=== PATIENT | male | born 1935 | race Caucasian/White ===

== ENCOUNTER 2017-09-16 07:26 | Inpatient (IN) | payer OTHER, MEDICARE ==
--- NOTE | 2017-09-16 08:08 | CPEKG ---
Heart Rate: 83 RR Interval: 723 QRSD Interval: 94 QT Interval: 380 QTC Interval: 447 QRS Holderness: 48 T Wave Holderness: 187 EKG Severity - ABNORMAL ECG - EKG Impression: ATRIAL FIBRILLATION, V-RATE 70-105 EKG Impression: NONSPECIFIC T ABNORMALITIES, DIFFUSE LEADS Electronically Signed By: Dhruv Castaneda 16-Sep-2017 14:55:20
[2017-09-16 08:10] LABS: PLATELET COUNT 166 10^3/uL (150-400)
[2017-09-16] MEDS ORDERED: NS 1,000 ML IV ONE (08:17)
--- NOTE | 2017-09-16 08:27 | EDPHY ---
H & P Stated Complaint: diarrhea lightheaded since this Time Seen by Provider: 09/16/17 07:34 - Personal History Current Tetanus/Diphtheria Vaccine: Unsure Current Tetanus Diphtheria and Acellular Pertussis (TDAP): Unsure - Medical/Surgical History Hx Asthma: No Hx Chronic Respiratory Disease: No Hx Diabetes: Yes Hx Cardiac Disease: Yes Hx Renal Disease: No Hx Cirrhosis: No Hx Alcoholism: No Hx HIV/AIDS: No Hx Splenectomy or Spleen Trauma: No Other PMH: afib, NIDDM - Social History Smoking Status: Never smoked Constitutional: Initial Vital Signs Temperature (C) 37.9 C 09/16/17 07:32 Heart Rate 90 09/16/17 07:32 Respiratory Rate 16 09/16/17 07:32 Blood Pressure 146/85 H 09/16/17 07:32 O2 Sat (%) 90 L 09/16/17 07:32 O2 Delivery Mode Nasal Cannula O2 (L/minute) 2 Allergies/Adverse Reactions: No Known Allergies Allergy (Unverified 09/16/17 07:30) Home Medications: Medication Instructions Recorded Atenolol [Tenormin 25 mg (*)] 25 mg PO DAILY 09/16/17 Cholecalciferol Vit D3 [Vitamin D3 1,000 units PO DAILY 09/16/17 (*)] Cyanocobalamin [Vitamin B12 (*)] 1,000 mcg PO DAILY 09/16/17 Levothyroxine [Synthroid 75 mcg 75 mcg PO DAILY06 09/16/17 (*)] Ramipril [Altace 2.5mg (*)] 2.5 mg PO DAILY 09/16/17 Rosuvastatin Calcium [Crestor 10mg 10 mg PO DAILY 09/16/17 (RX)] Timolol 0.5% [TIMOPTIC 0.5% (*)] 1 drops EACHEYE BID 09/16/17 Warfarin Sodium [Coumadin 2.5MG 2.5 mg PO WEFR@21 09/16/17 (*)] Warfarin Sodium [Coumadin 5MG (*)] 5 mg PO SUMOTUTHSA@21 09/16/17 metFORMIN HCL [Glucophage 500 mg 500 mg PO BIDMEAL 09/16/17 (*)] Medical Decision Making - Diagnostics Imaging Results: Imaging Impressions Brain MRI 09/16/17 08:57 Impression: 1. Moderate cerebellar and bilateral cerebral atrophy. 2. No acute infarct, acute hemorrhage, hydrocephalus, mass effect, or herniation. 3. Several nonspecific hyperintense T2/FLAIR signal abnormalities in the white matter of bilateral cerebral hemispheres. Differential diagnosis includes moderate microvascular ischemic gliosis, versus less likely post-infectious/post -inflammatory sequela. 4. Mild sinusitis. Findings and recommendations discussed with Emergency Department physician, Dhruv Castaneda M.D. at 11:09 a.m. on 09/16/2017. Final report concurs with initial preliminary interpretation. Imaging: Discussed imaging studies w/ wind turbine electrical engineer Radiologist, I viewed and interpreted images myself ED Course/Re-evaluation: CHIEF COMPLAINT: Diarrhea, dizziness HISTORY OF PRESENT ILLNESS: The patient is an anticoagulated 81 y/o male with atrial fibrillation, diabetes, and sleep apnea complaining of one episode of watery diarrhea and subsequent dizziness onset early this morning. He arrived here from [place] two nights ago. Yesterday he felt fatigued throughout the day and only ate a small meal in the morning; he did take his Metformin yesterday. He has not been able to drink many fluids, but denies nausea, vomiting, abdominal pain. His is quite sleepy during initial assessment and the majority of his history was obtained from . He seems to have difficulty keeping track of the conversation, but is oriented x4. Patient and family denies slurred speech, word finding difficulty, focal weakness or paresthesias. also reports he had a cough yesterday. REVIEW OF SYSTEMS: A 10 point review of systems was performed and is negative with the exception of the elements mentioned in the history of present illness. PHYSICAL EXAM: HR, BP, O2 Sat 90% on room air, RR. Temp noted as initially afebrile now 38.5C General Appearance: Somnolent, well hydrated, appropriate, and non-toxic appearing. Head: Atraumatic without scalp tenderness or obvious injury Eyes: Pupils equal, round, reactive to light and accommodation, EOMI, no trauma , no injection. Nose: Atraumatic, no rhinorrhea, clear. Throat: There is no erythema or exudates, no lesions, normal tonsils, mucus membranes moist. Neck: Supple, nontender, no lymphadenopathy. Respiratory: No retractions, no distress, no wheezes, and no accessory muscle use. Lungs are clear to auscultation bilaterally. Cardiovascular: Irregularly irregular rate and rhythm, no murmurs, rubs, or gallops. Good capillary refill all extremities. Gastrointestinal: Abdomen is soft, nontender, non-distended, no masses, no rebound, no guarding, no peritoneal signs. Musculoskeletal: Normal active ROM of all extremities, atraumatic. Neurological: Alert, appropriate, and interactive. The patient has non-focal cranial nerves, motor, sensory, and cerebellar exam. Face symmetric. Normal straight leg raise. Slightly more coordinated on left oaxf-re-tbic test than right. Skin: No rashes, good turgor, no nodules on palpation. 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 and son at bedside. DIAGNOSTICS/PROCEDURES/CRITICAL CARE TIME: The 12 lead EKG was interpreted by myself. Atrial fibrillation with controlled ventricular rate. See hard copy and/or "tracemaster" electronic copy for interpretation. Brain MRI: no acute findings per Dr. Meza. DIFFERENTIAL DIAGNOSIS: The differential diagnosis for the patient's diarrhea included but was not limited to gastroenteritis, gastritis, appendicitis, and medication side effect. MEDICAL DECISION MAKING: This is a 81 y/o male with atrial fibrillation and diabetes who presents for evaluation after one episode of diarrhea with several hours of subsequent dizziness and generalized weakness. I cannot identify obvious focal neuro deficit apart from slight difference in coordination during [id number] test. He was initially quite somnolent, but is already more alert after some IV fluids and 2lpm O2 via nasal cannula. Lungs are clear and abdomen is benign. While it seems most likely he is dehydrated and possibly picked up an infection during travel, due to his atrial fibrillation history and sub-therapeutic INR at 1.58 today, I've recommended a brain MRI to rule out cerebellar stroke or other intracranial abnormality, which he and his family agree to. Will continue IV fluids as well. EKG shows atrial fibrillation with controlled rate. Patient is now febrile at 38.5C. UA ordered. Brain MRI negative for acute findings. Patient was unable to stand and walk even with assistance. I've recommended admission, which they agree to. Spoke with hospitalist service. Dr. Abbott accepts admission. - Data Points Laboratory Results: Laboratory Results 09/16/17 07:58 09/16/17 07:58 09/16/17 09/16/17 09/16/17 11:32 07:58 07:58 WBC 7.39 10^3/uL 10^3/uL (3.80-9.50) RBC 4.53 10^6/uL 10^6/uL (4.40-6.38) Hgb 14.5 g/dL g/dL (13.7-17.5) Hct 42.0 % % (40.0-51.0) MCV 92.7 fL fL (81.5-99.8) MCH 32.0 pg pg (27.9-34.1) MCHC 34.5 g/dL g/dL (32.4-36.7) RDW 13.2 % % (11.5-15.2) Plt Count 166 10^3/uL 10^3/uL (150-400) MPV 11.0 fL fL (8.7-11.7) Neut % (Auto) 87.8 % H % (39.3-74.2) Lymph % (Auto) 4.2 % L % (15.0-45.0) [place] % (Auto) 6.1 % % (4.5-13.0) Eos % (Auto) 1.1 % % (0.6-7.6) Baso % (Auto) 0.4 % % (0.3-1.7) Nucleat RBC Rel Count 0.0 % % (0.0-0.2) Absolute Neuts (auto) 6.49 10^3/uL 10^3/uL (1.70-6.50) Absolute Lymphs (auto) 0.31 10^3/uL L 10^3/uL (1.00-3.00) Absolute Monos (auto) 0.45 10^3/uL 10^3/uL (0.30-0.80) Absolute Eos (auto) 0.08 10^3/uL 10^3/uL (0.03-0.40) Absolute Basos (auto) 0.03 10^3/uL 10^3/uL (0.02-0.10) Absolute Nucleated RBC 0.00 10^3/uL 10^3/uL (0-0.01) Immature Gran % 0.4 % % (0.0-1.1) Immature Gran # 0.03 10^3/uL 10^3/uL (0.00-0.10) PT INR Sodium 136 mEq/L mEq/L (135-145) Potassium 3.9 mEq/L mEq/L (3.5-5.2) Chloride 99 mEq/L mEq/L (97-110) Carbon Dioxide 20 mEq/l L mEq/l (22-31) Anion Gap 17 mEq/L H mEq/L (8-16) BUN 13 mg/dL mg/dL (7-23) Creatinine 0.7 mg/dL mg/dL (0.7-1.3) Estimated GFR > 60 Glucose 200 mg/dL H mg/dL (70-100) POC Glucose Calcium 9.1 mg/dL mg/dL (8.5-10.4) Nasal Influenza A PCR FLU A DETECTED H (NEGATIVE) Nasal Influenza B PCR NEGATIVE FOR FLU B (NEGATIVE) 09/16/17 09/16/17 07:50 07:47 WBC RBC Hgb Hct MCV MCH MCHC RDW Plt Count MPV Neut % (Auto) Lymph % (Auto) [place] % (Auto) Eos % (Auto) Baso % (Auto) Nucleat RBC Rel Count Absolute Neuts (auto) Absolute Lymphs (auto) Absolute Monos (auto) Absolute Eos (auto) Absolute Basos (auto) Absolute Nucleated RBC Immature Gran % Immature Gran # PT 19.0 SEC H SEC (12.0-15.0) INR 1.58 H (0.83-1.16) Sodium Potassium Chloride Carbon Dioxide Anion Gap BUN Creatinine Estimated GFR Glucose POC Glucose 189 mg/dL H mg/dL (70-100) Calcium Nasal Influenza A PCR Nasal Influenza B PCR Medications Given: Discontinued Medications Sodium Chloride (Ns) 1,000 mls @ 0 mls/hr IV ONCE ONE PRN Reason: Wide Open Stop: 09/16/17 08:18 Last Admin: 09/16/17 08:22 Dose: 1,000 mls Point of Care Test Results: 09/16/17 07:47 POC Glucose 189 H Departure - Departure Disposition: [facility] In[facility] Acute Clinical Impression: Weakness Diarrhea Qualifiers: Diarrhea type: unspecified type Qualified Code(s): R19.7 - Diarrhea, unspecified Fever Qualifiers: Fever type: unspecified Qualified Code(s): R50.9 - Fever, unspecified Condition: Fair Report Scribed for: Dhruv Castaneda Report Scribed by: Ember Oneill Date of Report: 09/16/17 Time of Report: 08:27
[2017-09-16 08:31] LABS: INR 1.58 (0.83-1.16)
--- NOTE | 2017-09-16 12:02 | ASMTLACE ---
HENRIQUEE Acuity / Level of Answers: Yes Care: Did the patient have an inpatient admission? Comorbidities - select Answers: Diabetes (uncontrolled or all that apply controlled) # of Emergency department Answers: 1-2 visits in the last 6 months Score: 5 Date Signed: 09/16/2017 12:02 PM Electronically Signed By:Marianna Lake RN
[2017-09-16] MEDS ORDERED: ONDANSETRON 4 MG/2 ML VIAL IVP PRN (13:34)
[2017-09-16] MEDS ORDERED: ACETAMINOPHEN 325 MG TAB PO PRN (13:34)
[2017-09-16] MEDS ORDERED: ALBUTEROL 3 ML DEYVIAL IH PRN (13:34)
[2017-09-16] MEDS ORDERED: ONDANSETRON DISINTEGRATING 4 MG TAB PO PRN (13:34)
[2017-09-16] MEDS ORDERED: D50W 25 GM/50 ML SYR IVP PRN (13:36)
[2017-09-16] MEDS ORDERED: IOPAMIDOL (ISOVUE 370) 100 ML BTL IV ONE (14:02)
[2017-09-16] MEDS ORDERED: ALTEPLASE 1 MG/ML SYR IV ONE (14:52)
[2017-09-16] MEDS ORDERED: NS 50 ML IV ONE (14:52)
[2017-09-16] MEDS ORDERED: ALTEPLASE 100 MG/100 ML VIAL IV ONE (14:52)
[2017-09-16] MEDS ORDERED: LABETALOL HCL 5 MG/ML 20 ML MDV IVP PRN (14:53)
--- NOTE | 2017-09-16 15:57 | GHP ---
[f rep st] HISTORY AND PHYSICAL DATE OF ADMISSION: 09/16/2017 CHIEF COMPLAINT: Fatigue, diarrhea and lightheadedness. HISTORY OF PRESENT ILLNESS: Mr. Elliott is a 81-year-old male with history of diabetes, hypertension, hyperlipidemia, and atrial fibrillation on chronic anticoagulation who presents to the emergency department with dizziness, diarrhea, and fatigue. He is visiting from [place] and has been in his usual state of health until the day of presentation when he developed one episode of diarrhea and lightheadedness. There was reportedly a very small amount of bright red blood, though this did not persist and he did not have frankly bloody stools. No nausea or vomiting. He was febrile on arrival to 38.5. There are no known sick contacts. In the ED, he was reportedly a bit ataxic and an MRI of the brain without contrast was negative for acute hemorrhage or acute ischemia. An influenza A test was positive and he was admitted to the hospital for further management. Upon arrival to the floor, I evaluated him and found him to be aphasic. His was at the bedside and reported that this was a new symptom since he was in the ED. I confirmed with the ED staff that he was talking normally. I also found a right pronator drift. A stroke alert was called. Stat CT of his head was negative for acute hemorrhage. CTA was negative for thrombus. [facility] was readily available and evaluated the patient and found his symptoms to be consistent with an acute ischemic left cerebral hemispheric stroke. He takes Coumadin for atrial fibrillation though his INR is subtherapeutic at 1.58. He has had no recent bleeding other than that small amount of reported blood seen in his stool on once occasion. He denies recent head trauma. It was determined he was last seen normal at 12:45 p.m. I discussed the case with [facility], tPA will be initiated and the patient is admitted to the intensive care unit. PAST MEDICAL HISTORY: 1. Oqq-tjowcmo-mnkcgwzuo diabetes. 2. Hypertension. 3. Hyperlipidemia. 4. Atrial fibrillation. 5. Chronic anticoagulation with a subtherapeutic INR. 6. Sleep apnea, has refused CPAP. PAST MEDICATIONS: Please see [facility] for complete outpatient medication list. ALLERGIES: He has known drug allergies. PAST SURGICAL HISTORY: Meningioma resected on his spine. FAMILY HISTORY: Reviewed and noncontributory. SOCIAL HISTORY: The patient is visiting from [place]. His and son are at the bedside. He denies tobacco or significant alcohol use. REVIEW OF SYSTEMS: A 10-point review of systems was performed and is negative except as per HPI. OBJECTIVE: VITAL SIGNS: Blood pressure in the emergency department is 123/80. Upon arrival to the floor, his blood pressure was 180/81, current temperature is 37.3, although he was 38.5 in the ED, heart rate 89, respiratory rate 19. He is 94% on room air. GENERAL: The patient is awake, alert, and oriented to person and place ,in no acute distress. HEENT: Head is atraumatic, normocephalic. Pupils are equal, round, and reactive to light. Extraocular muscles are intact. Oropharynx is clear. Mucous membranes are moist. NECK: Supple. There is no JVD. HEART: Regular rate and rhythm without murmur. LUNGS : Lungs reveal diffuse mild expiratory wheezes. ABDOMEN: Soft, nondistended, nontender, normoactive bowel sounds. EXTREMITIES: Without cyanosis, clubbing, or edema. NEUROLOGIC: He has no facial asymmetry. He has a hayx-ch-ljpsoups aphasia, right pronator drift and right leg weakness are noted. There is no dense gaze deviation, though he does seem to have a left-sided gaze preference. LABORATORY DATA: CBC reveals a normal white cell count, normal hemoglobin, normal platelets of 166. INR is 1.58. Basic metabolic panel shows normal electrolytes though his CO2 is 20, anion gap 17, glucose is 200. Influenza A positive. Brain MRI without contrast performed in the emergency department was negative for acute infarct, hemorrhage or mass. Moderate cerebellar bilateral cerebral atrophy are noted as well as several nonspecific signal abnormalities in the white matter of bilateral cerebral hemispheres in addition to mild sinusitis. CT head without contrast 5 hours later is negative for acute hemorrhage. CTA head and neck is negative for large vessel occlusive disease. Some plaque is noted. The final radiology report is pending though I confirmed no thrombus with the radiologist. ASSESSMENT AND PLAN: Mr. Elliott is a 81-year-old male with history of diabetes , hypertension, hyperlipidemia, and atrial fibrillation with a subtherapeutic INR who presents to the emergency department with weakness, dizziness, and a positive influenza test. Further evaluation upon arrival to the medical floor is consistent with acute stroke. He was evaluated by [facility] and admitted to the intensive care unit on tPA. 1. Acute ischemic stroke. His exam is consistent with a left hemispheric stroke with aphasia and right sided weakness. NIH stroke scale is 8. He was last seen normal at 12:45 p.m. and is a candidate for tPA with an INR less than 1.7 on Coumadin. I reviewed the case with Dr. Salazar Patricio, [facility], who examined the patient and recommends administration of tPA. The patient is admitted to the intensive care unit on tPA protocol with frequent neurochecks. Neurology consult is requested. Will obtain echocardiogram and repeat a head CT in 24 hours. Defer repeating MRI and timing to Neurology. Obviously will hold his Coumadin for now. Blood pressure control with p.r.n. IV labetalol to maintain a SBP less than 180. Speech evaluation is requested. 2. Atrial fibrillation. He is currently rate controlled on atenolol. Will resume this in the morning. As above, Coumadin is held for now as he is receiving tPA. His subtherapeutic INR and poorly controlled hypertension likely increased his stroke risk. 3. Hypertension. Permissive hypertension for now with PRN Labetalol for SBP < 180. Resume BB in am. 4. Type 2 diabetes. The patient uses metformin in the outpatient setting. He is not on insulin. We will hold his metformin given his contrast load. Sliding scale lispro for glycemic control. He will be continued on his NITHYA inhibitor and statin. 5. Hyperlipidemia. Continue statin. 6. Influenza A. I will start him on Tamiflu and check a chest x-ray given his cough and wheezing on exam. Will provide p.r.n. albuterol nebulizers. I am going to defer steroids for now. We will consider initiating these over the next 24 hours if his respiratory symptoms worsen. 7. Deep venous thrombosis prophylaxis. The patient is receiving tPA. We will place sequential compression devices. 8. Code status: Patient is full code. 9. Disposition. Patient is admitted to inpatient status. I anticipate he will require greater than 48 hours hospitalization for ongoing management of his acute ischemic stroke, influenza A and multiple medical problems. 75 minutes critical care time on admission. 30 more minutes spent at bedside later in afternoon answering family questions. /[id number]/MODL MTDD
[2017-09-16] MEDS: NS W/ 20 KCl/L 1,000 ML IV SCH (16:49)
[2017-09-16] MEDS: FAMOTIDINE 20 MG/NACL 50 ML IV SCH (16:55)
[2017-09-16] MEDS: METOPROLOL TARTRATE 5 MG/5 ML INJ IVP ONE ×2 (16:59→17:25)
--- NOTE | 2017-09-16 17:18 | PDMN ---
Medical Necessity Medical necessity: C/M review: est. > 2 MN LOS for eval and TX of acute - ischemic left cerebral hemispheric stroke, influenza A requiring emergent IV tPA , planned Neurology consult, Rehab eval consult, echocardiogram, ongoing IV fluids, IV Pepcid, oral Tamiflu, cardiac monitoring, pulse oximetry, supplemental O2, acute inpt PT/OT/ST in ICU, comorbid atrial fibrillation, subtheraputic INR, poorly controlled hypertension, type 2 diabetes, hyperlipidemia per H/P.
[2017-09-16] MEDS: LEVALBUTEROL 1.25 MG/3 ML DEYVIAL IH SCH ×2 (17:27→23:52)
[2017-09-16] MEDS: INSULIN LISPRO 100 UNIT/ML SC SCH (19:00)
[2017-09-16] MEDS: LEVOTHYROXINE 75 MCG TAB PO SCH (19:48)
[2017-09-16] MEDS: ROSUVASTATIN CALCIUM 10 MG TAB PO SCH (19:48)
[2017-09-16] MEDS: TIMOLOL 0.5% 15 ML OPHT.BTL EACHEYE SCH ×2 (19:49→23:03)
--- NOTE | 2017-09-16 23:22 | GCON ---
[f rep st] CONSULTATION PULMONARY/CRITICAL CARE CONSULTATION DATE OF CONSULTATION: 09/16/2017 REASON FOR CONSULTATION: Intensive care unit evaluation and management of acute neurologic symptoms and influenza A infection. HISTORY: The patient is a pleasant 81-year-old from [place]. He flew out to [place] to visit a new gr and baby. Yesterday, he developed diarrhea. This persisted and he presented to the emergency depart [facility] with fatigue, dizziness, and diarrhea. He was febrile. He did have some pulmonary symptoms, an d influenza A by PCR came back positive. He apparently was slightly ataxic in the emergency departme nt initially. An MRI was done, which was negative, showing only some atrophy. He was admitted to the floor. He became aphasic there. He was sent back down for a stroke alert. C TA of the neck and head was negative. He does have known atrial fibrillation and is on chronic antic oagulation. INR was subtherapeutic on admission at 1.58. He was evaluated for acute stroke by [facility]. TPA was felt to be indicated and this was given. Following the t-PA, he had the deve lopment of some acute skin lesions appearing as raised, nonpruritic, edematous areas. These were pre sent on both arms. He does have a history of chronic atrial fibrillation, and has been on anticoagulation. PAST MEDICAL HISTORY: Type 2 diabetes; hyperlipidemia; hypertension; chronic atrial fibrillation, on anticoagulation; and sleep apnea for which he has refused CPAP. MEDICATIONS ON ADMISSION: Included Timolol, Crestor, Glucophage, Altace, levothyroxine, atenolol and Coumadin. DRUG ALLERGIES: No known drug allergies. SOCIAL HISTORY: The patient is from [place]. He is here with family. He is a never smoker. Sig nificant alcohol is negative. FAMILY HISTORY: Negative/noncontributory. REVIEW OF SYSTEMS: A 10-point review of systems is unremarkable except as mentioned above. There is no history of previous known neurologic events. PHYSICAL EXAMINATION: GENERAL: A pleasant gentleman who is sitting comfortably in bed and appears t o be in no distress. He does have some mild audible wheezing. He has no stridor. VITAL SIGNS: Blo od pressure is 160/80, heart rate 105, with atrial fibrillation on the monitor. On 2 L, saturations are 95%. He is afebrile with a T-max of 39.3. HEENT: No facial droop. Pupils appear equal. Tongu e is not swollen. There is no jugular venous distention, lymphadenopathy, or thyromegaly. CHEST: M ild fine wheezes bilaterally without significant rales or central congestion. There are no rhonchi. HEART: Irregular. There is a soft systolic murmur, no gallop. ABDOMEN: Soft, nontender. EXTREMI TIES: Unremarkable for edema, cords, or tenderness. There are some lesions consistent with hives on both upper extremities, not on the back or chest or abdomen. These are focal. The patient does not report itching. NEUROLOGIC: Grossly nonfocal. He moves all extremities equally with adequate stre ngth. By report, he has a mild peripheral right visual deficit. Word finding seems to be pretty goo d at this point in time, and he is not particularly aphasic. This appears to be improved compared to reports prior to his tPA. RADIOLOGIC STUDIES: As outlined above. LABORATORY: White blood cell count 7300, hematocrit 44, platelets are normal. INR on admission was 1.58. Chemistries are within normal limits with the exception of his glucose which has been in the 1 70-200 range. Influenza A by PCR is positive. Chest x-ray is pending. ASSESSMENT: 1. Acute neurologic changes. This is consistent with possible embolic stroke. He has been given ti ssue plasminogen activator and appears to have initial early improvement. Further followup will be n eeded but at this point in time, neurologically seems to be doing fairly well. 2. Influenza A. He does have wheezing, pulmonary congestion and fevers, all consistent with this di agnosis. Tamiflu has been ordered. He will be given bronchodilator therapies and followed closely. Chest x-ray is pending. 3. Drug eruption. This is acute, likely secondary to intravenous contrast. Tissue plasminogen acti vator or a carrier associated with the tissue plasminogen activator is possible, as well. He will be given Benadryl and intravenous famotidine. He has had extreme elevations in blood sugars with stero ids in the past. Solu-Medrol and/or prednisone will be held at this time but can be given if he sign ificantly progresses. I do not believe his current wheezing is secondary to an IgE-mediated reaction . 4. History of chronic atrial fibrillation, on anticoagulation. INR subtherapeutic on admission. 5. History of other medical problems as outlined above. 6. Metabolic: Hyperglycemia noted. Insulin coverage will be ordered. PLAN AND RECOMMENDATIONS: Please see the problem-specific comments above. At this point in time, he will be given 1 dose of IV metoprolol secondary to hypertension and tachycardia, IV famotidine and B enadryl. Steroids will be held currently. He will be given Xopenex. His allergic reaction will be followed closely. Other medications will be continued. Anticoagulation will be initiated after the tPA window. The latter has just been finished. Bridging with full-dose enoxaparin will be needed un til Coumadin becomes therapeutic. Chest x-ray results will be awaited. Laboratory and neurologic st atus will be followed. Further plans and recommendations will be made based on his progress over the next 12-24 hours. /[id number]/MODL
[2017-09-17] MEDS: FAMOTIDINE 20 MG/NACL 50 ML IV SCH ×2 (01:20→08:04)
[2017-09-17] MEDS: LEVOTHYROXINE 75 MCG TAB PO SCH (05:43)
[2017-09-17] MEDS: OSELTAMIVIR PHOSPHATE 75 MG CAP PO SCH ×4 (05:56→17:36)
[2017-09-17] MEDS: LEVALBUTEROL 1.25 MG/3 ML DEYVIAL IH SCH ×4 (05:58→23:56)
[2017-09-17] MEDS: INSULIN LISPRO 100 UNIT/ML SC SCH ×3 (07:40→17:41)
[2017-09-17] MEDS: ATENOLOL 25 MG TAB PO SCH (08:05)
[2017-09-17] MEDS: TIMOLOL 0.5% 15 ML OPHT.BTL EACHEYE SCH ×2 (08:05→21:02)
[2017-09-17] MEDS: ROSUVASTATIN CALCIUM 10 MG TAB PO SCH (08:05)
[2017-09-17] MEDS: NS W/ 20 KCl/L 1,000 ML IV SCH (08:13)
[2017-09-17] MEDS: CYANO/VITAMIN B12 1000 MCG TAB PO SCH (08:26)
[2017-09-17] MEDS ORDERED: RAMIPRIL 2.5 MG CAP PO SCH (09:00)
[2017-09-17 12:06] LABS: INR 1.3 (0.83-1.16); PROTIME(PATIENT) 16.4 SEC (12.0-15.0)
--- NOTE | 2017-09-17 12:14 | NEUROPROG ---
Assessment: HOSPITAL NEUROLOGY CONSULT REQUESTING: Mary Abbott DO REASON: post-tPA HPI: 81 year old right-handed man with a history of afib on anticoagulation, HTN, HLD , uncontrolled DM2, ROBERT not on CPAP presented to our ED yesterday with diarrhea. Patient is visiting family from out of state. He's been having watery diarrhea and lightheadedness, as well as URI symptoms. This inspired ED evaluation. He tested positive for influenza in the ED. There was concern for ataxia on evaluation, so MRI brain wo was done showing nothing acute and nothing in the posterior fossa. He was admitted for treatment of his flu, diarrhea and likely dehydration. On arrival to the floor, the patient was apparently not answering questions and having trouble finding words. There was indication of RUE/RLE drift. Stroke alert was called. His INR was subtherapeutic at 1.58. CTA head/neck was done showing very mild bilateral carotid bulb plaque, but nothing of hemodynamic significance. He was given tPA at the direction of the telestroke team. Bolus was administered on 09/16 at 1512. He is now in the ICU for post-tPA care. His anticoagulation has been stopped for the time being. His symptoms have improved after tPA. He is still, however, having word finding difficulty and cognitive slowing. Patient states yesterday's events were due to him being tired. He's never had a stroke or TIA in the past. His is present and states he does forget things around the house, but she denies any worrisome cognitive decline. ROS: As per the HPI, otherwise a complete 12 point ROS was performed and is negative ALLERGIES AND MEDS: As recorded in the EMR - reviewed and reconciled PFSH: As per the intake H&P by Dr. Abbott from yesterday EXAM: VS reviewed in EMR GEN: WDWN laying in NAD HEENT: NCAT, sclera anicteric, conjunctiva not injected, MMM, oropharynx clear, no scalp tenderness NECK: supple, nontender, no meningismus CV: RRR s1 s2 wo m/r/c/g. Carotid pulses 2+ wo bruit NEURO: MS: awake, alert, oriented to all spheres. Speech nondysarthric. He does have some word retrieval difficulty with naming, but otherwise his language domains are intact. Follows commands. Attends to both sides. ? episodic memory impairment on casual conversation. Mood euthymic. Good fund of knowledge. CN: pupils 3mm round and reactive. Fundi with sharp discs. VFF. Primary gaze centered. Full ocular motility - smooth pursuits with saccadic intrusions. Facial sensation preserved. Face symmetric. Hearing grossly intact to finger rub. Palatoglossal movements intact. Shoulder shrug and head turn strong. MOTOR: normal bulk/tone. No adventitial movements. Full power throughout. SENSORY: symmetric LT/PP throughout. No extinction. COORD: no ataxia FN/HS. Fei labored but symmetric. REFLEX: plantars down. No clonus. Absent ankle jerks, other DTRs trace. GAIT: deferred DATA REVIEW: Labs reviewed in EMR LDL 98 A1c 7.7 PERSONALLY INTERPRETED RESULTS AND DATA: MRI brain wo 09/16 - global volume loss, several punctate areas of scattered T2 FLAIR hyperintensity in the white matter refelctive of chronic microvascular ischemic change. CTA head/neck - mild bilateral carotid bulb plaque of no hemodynamic significance. Otherwise normal. IMPRESSION AND RECOMMENDATIONS: // POSSIBLE STROKE // S/P tPA // INFLUENZA // DIARRHEA Patient with episode of expressive aphasia, right-sided weakness in the setting of an infectious illness. Differential certainly includes and ischemic stroke to the left hemisphere - he does have afib and was subtherapeutic in his INR - aphasia would be more cortical localization, so would have expected to see a thrombus in the LMCA, which was not present. This raises the possibility that this was an encephalopathy from his infection. - cont ICU care with neuro checks and vitals per post-tPA protocol - 24h repeat CT head wo scheduled today for 1500 - would check MRI brain wo again after the 24h post-tPA window - would expect to see some small areas of new ischemic change if this truly were a stroke - cont to hold antithrombotics until CT head obtained per above - keep BP < 180/105 - maintain normothermia (avoid fever), normoglycemia (avoid hypoglycemia), euvolemia - PT/OT/LEATHER TACKER consults - stroke education - further recommendations pending imaging results and final diagnosis - medical optimization per primary team Patient critically ill with possible stroke s/p tPA 45 mins CC time on the floor Objective: Vital Signs Temp Pulse Resp BP Pulse Ox 37.1 C 70 26 H 138/73 H 98 09/17/17 07:30 09/17/17 11:30 09/17/17 11:30 09/17/17 11:30 09/17/17 11:30 Laboratory Results 09/17/17 04:22 09/16/17 09/17/17 09/18/17 05:59 05:59 05:59 Intake Total 949.64 Output Total 450 Balance 499.64 PT 16.4 SEC (12.0-15.0) H 09/17/17 11:40 INR 1.30 (0.83-1.16) H 09/17/17 11:40 Allergies/Adverse Reactions: Iodinated Contrast- Oral and IV Dye Allergy (Verified 09/17/17 09:48) Hives
--- NOTE | 2017-09-17 13:29 | HOSPPROG ---
Hospitalist Progress Note Assessment/Plan: DIAGNOSES: -acute ischemic stroke manifest as , now with complete resolution of neurologic findings after tPA administration with no evident complications -recurrent stroke risk quite high in this gentleman -bleeding risk should be reasonably low for him -chronic persistent atrial fibrillation with inadequate anticoagulation at 1.58 ; good rate control and no signs of heart failure -LDL currently at ; notably the patient decreased his Crestor dose to 1.25 daily due to a desire to minimize medication use but no side effects were noted -diabetes mellitus, currently with reasonably good sugar control -history of hypertension currently controlled on chronic medications -sleep apnea for which she has refused CPAP in the past Overall he has had a good recovery after his tPA and remains clinically stable in all regards at this point. I reviewed the case in detail today with doctors Slim Gross and [place] since the best 0. Patient also seen on multidisciplinary rounds PLANS: In-hospital management: -repeat surveillance CT after tPA at 3:00 p.m. today -continue cardiac EKG monitoring and blood pressure and sugar monitoring -Tylenol for any evidence of elevated temperatures -continue PT ST and OT assessments -decisions regarding resuming anticoagulation after his CT scan is done Long-term management after discharge: -continue Coumadin and I did emphasize for the patient that he will really when have his INR steadily between 2 and 3, consider other medicines if that is difficult over time -LDL should be pushed to a goal less than 70 and he should get back on higher statin for its anti-inflammatory effects as well; had a very long talk with the patient and his family regarding the risks and benefits and potential side effects of statin medicines but is clear this point that more aggressive therapy is indicated, other medicines could be considered and tried if he has side effects or problems but there have been none so far -continue to watch his blood pressure very closely over time -add aspirin at 81 mg daily for stroke prevention -he should really reconsider sleep apnea therapies, relook at CPAP in if that is unacceptable to him consider other possible therapies for sleep apnea -regular exercise, diet considerations I had extensive discussion regarding all of the above with the patient and his family at the bedside today SUBJECTIVE: He has no neurologic symptoms whatsoever, no headache, no fever symptoms No chest pain or shortness of breath No bleeding has been noticed or bruising OBJECTIVE Vitals reviewed: Blood pressures her somewhat on the low side of normal range, pulse is in good range no fevers Watershed Manager, my review: AFib rate controlled Exam: alert oriented No focal neurologic findings on cranial nerve motor speech language or gait exam skin warm dry color ok No bleeding or bruising noted resps not labored lungs clear BSs heart irregular abd soft nondistended nontender, bowel sounds present limbs warm, no edema iv site ok Laboratory data: INR is down to 1.3 today Sugars in desired range Electrolytes and renal function normal Objective: Vital Signs Temp Pulse Resp BP Pulse Ox 37.1 C 65 18 116/87 H 98 09/17/17 07:30 09/17/17 12:30 09/17/17 12:30 09/17/17 12:30 09/17/17 12:30 Laboratory Results 09/17/17 04:22 09/16/17 09/17/17 09/18/17 06:59 06:59 06:59 Intake Total 949.64 Output Total 450 Balance 499.64 PT 16.4 SEC (12.0-15.0) H 09/17/17 11:40 INR 1.30 (0.83-1.16) H 09/17/17 11:40 - Time Spent With Patient Time Spent with Patient: greater than 35 minutes Time Spent with Patient: Greater than 35 minutes spent on this patients care, greater than 50% of time spent counseling, educating, and coordinating care regarding the above mentioned plan. ICD10 Worksheet Patient Problems: Problems Problem Status Onset Diarrhea Acute Fever Acute Weakness Acute
--- NOTE | 2017-09-17 14:11 | ASMTCMCOM ---
CM Note CM Note Notes: Pt admitted for viral infection, hypoxemia, acute ischemic stroke. Pt visiting from [place], has had and son at bedside. 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 OT/PT evals pending. CM to follow for d/c plan of care. Date Signed: 09/17/2017 02:10 PM Electronically Signed By:ABDON Schultz
--- NOTE | 2017-09-17 15:09 | PDINTPN ---
Claims Sorter Progress Note Assessment/Plan: Assessment: Status post presume stroke. CT head and CT angiograms of the head and neck were all negative. Received tPA with resolution of his symptoms. He was on anticoagulation however INR was subtherapeutic when he became aphasic. Chronic atrial fibrillation, anticoagulation. INR 1.3. Coumadin to be restarted. He will need to be bridged with Lovenox. Hypertension: Blood pressure is fine. On his usual outpatient medications. Hives: Presumably secondary to iodinated contrast. Family history is positive for shellfish allergies. Now resolved. Metabolic: Type 2 diabetes. On p.r.n. sliding scale insulin coverage. Plan: Restart Coumadin today. Follow daily INRs. Will bridge with Lovenox secondary to high risk for recurrent embolic events from his atrial fibrillation with subtherapeutic anticoagulation. Continue care in the intensive care unit. 35 min of critical care time spent directly with the patient. Discussed with Neurology, hospitalist, nursing, the ICU multi disciplinary team. Subjective: Feels better. Aphasia and word-finding issues seem to be much better. No focal neurologic deficits. Denies headache. Denies shortness of breath. No itching Objective: Vital Signs Temp Pulse Resp BP Pulse Ox 37.1 C 58 L 23 H 130/72 H 94 09/17/17 07:30 09/17/17 14:30 09/17/17 14:30 09/17/17 14:30 09/17/17 14:30 Laboratory Results 09/17/17 04:22 09/16/17 09/17/17 09/18/17 05:59 05:59 05:59 Intake Total 949.64 Output Total 450 625 Balance 499.64 -625 PT 16.4 SEC (12.0-15.0) H 09/17/17 11:40 INR 1.30 (0.83-1.16) H 09/17/17 11:40 Laboratory Tests 09/17/17 11:40 PT 16.4 H INR 1.30 H Physical Exam - Physical Exam General Appearance: alert, no apparent distress EENT: PERRL/EOMI, other (Nasal cannula at 2 L) Neck: normal inspection (No obvious jugular venous distension) Respiratory: lungs clear (Wheezes resolved.), rales (Few nonspecific rales at bases), No rhonchi, No wheezing Cardiac/Chest: irregularly irregular (Atrial fibrillation at 65) Abdomen: normal bowel sounds, non-tender, soft Male Genitalia: other (No Polanco catheter) Skin: normal color, warm/dry, other (Hives present yesterday afternoon have all but resolved.) Extremities: pedal edema (Trace) Neuro/Psych: no motor/sensory deficits, No cognition abnormalities ICD10 Worksheet Patient Problems: Problems Problem Status Onset Diarrhea Acute Fever Acute Weakness Acute
[2017-09-17] MEDS ORDERED: WARFARIN SODIUM 5 MG TAB PO ONE ×2 (16:00→17:00)
[2017-09-17] MEDS: ENOXAPARIN 80 MG/0.8 ML SYR SC SCH (21:02)
[2017-09-18] MEDS: LEVALBUTEROL 1.25 MG/3 ML DEYVIAL IH SCH (05:56)
[2017-09-18] MEDS ORDERED: LEVALBUTEROL 1.25 MG/3 ML DEYVIAL IH PRN (06:05)
[2017-09-18] MEDS: LEVOTHYROXINE 75 MCG TAB PO SCH (06:05)
[2017-09-18 06:24] LABS: INR 1.66 (0.83-1.16); PROTIME(PATIENT) 19.7 SEC (12.0-15.0)
[2017-09-18] MEDS: INSULIN LISPRO 100 UNIT/ML SC SCH ×3 (08:16→18:39)
[2017-09-18] MEDS: OSELTAMIVIR PHOSPHATE 75 MG CAP PO SCH ×2 (08:23→16:54)
[2017-09-18] MEDS: ENOXAPARIN 80 MG/0.8 ML SYR SC SCH ×2 (08:23→18:27)
[2017-09-18] MEDS: ROSUVASTATIN CALCIUM 10 MG TAB PO SCH (08:23)
[2017-09-18] MEDS: CYANO/VITAMIN B12 1000 MCG TAB PO SCH (08:24)
[2017-09-18] MEDS: TIMOLOL 0.5% 15 ML OPHT.BTL EACHEYE SCH (08:24)
[2017-09-18] MEDS: ATENOLOL 25 MG TAB PO SCH (08:24)
--- NOTE | 2017-09-18 12:21 | WOCRNPDOC ---
KRISTOFER Advanced Assessment Note - Skin Integrity Problem, Advanced Assess Coccyx Dressing Type: Open to Air Emily Wound Tissue: Blanching, Erythema Site Measurement - Head-to-Toe Length X Width X Depth (cm): 3.2x1.8xintact Skin Integrity Problem Comment: Patient sitting upright in chair. Able to stand unaided. I observed the area of concern on patient's coccyx. Skin is red but blanchable and intact at this time. Patient advised to shift his weight when sitting and to be mindful of changing positions while in bed. Waffle cushion placed in patient's chair by TA López. Wound care will not continue to follow this wound. Please reconsult PRN.
[2017-09-18 12:29] VITALS: TEMP 98.5
--- NOTE | 2017-09-18 13:03 | NEUROPROG ---
Assessment: BACKGROUND: 09/17 81 year old right-handed man with a history of afib on anticoagulation, HTN, HLD , uncontrolled DM2, ROBERT not on CPAP presented to our ED yesterday with diarrhea. Patient is visiting family from out of state. He's been having watery diarrhea and lightheadedness, as well as URI symptoms. This inspired ED evaluation. He tested positive for influenza in the ED. There was concern for ataxia on evaluation, so MRI brain wo was done showing nothing acute and nothing in the posterior fossa. He was admitted for treatment of his flu, diarrhea and likely dehydration. On arrival to the floor, the patient was apparently not answering questions and having trouble finding words. There was indication of RUE/RLE drift. Stroke alert was called. His INR was subtherapeutic at 1.58. CTA head/neck was done showing very mild bilateral carotid bulb plaque, but nothing of hemodynamic significance. He was given tPA at the direction of the telestroke team. Bolus was administered on 09/16 at 1512. He is now in the ICU for post-tPA care. His anticoagulation has been stopped for the time being. His symptoms have improved after tPA. He is still, however, having word finding difficulty and cognitive slowing. Patient states yesterday's events were due to him being tired. He's never had a stroke or TIA in the past. His is present and states he does forget things around the house, but she denies any worrisome cognitive decline. INTERVAL HISTORY: 09/18: continues to improve. Still with some word finding difficulty and cognitive slowing, but overall improving. No new complaints. Eager to go home. EXAM: VS reviewed in EMR GEN: WDWN laying in NAD NEURO: MS: awake, alert, oriented to all spheres. Speech nondysarthric. He does have some word retrieval difficulty with naming (improved but still present), but otherwise his language domains are intact. Follows commands. Attends to both sides. ? episodic memory impairment on casual conversation. Mood euthymic. Good fund of knowledge. CN: pupils 3mm round and reactive. VFF. Primary gaze centered. Full ocular motility - smooth pursuits with saccadic intrusions. Facial sensation preserved. Face symmetric. Hearing grossly intact to finger rub. Palatoglossal movements intact. Shoulder shrug and head turn strong. MOTOR: normal bulk/tone. No adventitial movements. Full power throughout. SENSORY: symmetric LT/PP throughout. No extinction. COORD: no ataxia FN/HS. Fei labored but symmetric. REFLEX: plantars down. No clonus. Absent ankle jerks, other DTRs trace. GAIT: deferred DATA REVIEW: Labs reviewed in EMR LDL 98 A1c 7.7 PERSONALLY INTERPRETED RESULTS AND DATA: MRI brain wo 09/16 - global volume loss, several punctate areas of scattered T2 FLAIR hyperintensity in the white matter refelctive of chronic microvascular ischemic change. CTA head/neck - mild bilateral carotid bulb plaque of no hemodynamic significance. Otherwise normal. CT head wo 24h post-tPA - no hemorrhage MRI brain wo 09/17 - no change from study dated 09/16 IMPRESSION AND RECOMMENDATIONS: // SUSPECT ENCEPHALOPATHY FROM INFLUENZA/DIARRHEA/DEHYDRATION // S/P tPA // INFLUENZA // DIARRHEA Patient with episode of expressive aphasia, right-sided weakness in the setting of an infectious illness. He also had report of ataxia in the ED. Differential certainly includes and ischemic stroke to the left hemisphere - he does have afib and was subtherapeutic in his INR - aphasia would be more cortical localization, so would have expected to see a thrombus in the LMCA, which was not present. This raises the possibility that this was an encephalopathy from his infection. Given lack of any acute ischemic change on repeat MRI, I very much doubt this was a stroke - unusual to see no ischemia, even after tPA, given the loss of millions of neurons per minute with ischemia. He is still symptomatic with dysnomia. I suspect more encephalopathy from his infectious illness and dehydration from diarrhea. Regardless, he is on optimum medical therapy for stroke prevention (with exception of LDL of 98, but I don't think we need to get aggressive with this since likelihood of stroke is low, but he will remain on current statin dose). - can resume anticoagulation with bridging per primary team - goal normotension - long-term goal normoglycemia with A1c at least < 6.5 - cont statin at current dose - maintain normothermia (avoid fever), normoglycemia (avoid hypoglycemia), euvolemia - PT/OT/SNOW REMOVER consults - stroke education - focused on activating EMS for any stroke-like symptoms. Reviewed that while he likely didn't have a stroke here, he is still at risk in the future given his vascular risk factors. - medical optimization per primary team Will sign off. Recall PRN. Objective: Vital Signs Temp Pulse Resp BP Pulse Ox 36.9 C 54 L 21 H 143/68 H 93 09/18/17 12:00 09/18/17 12:00 09/18/17 12:00 09/18/17 12:00 09/18/17 12:00 Laboratory Results 09/18/17 09:08 09/17/17 04:22 09/17/17 09/18/17 09/19/17 05:59 05:59 05:59 Intake Total 949.64 1581 500 Output Total 450 625 1 Balance 499.64 956 499 PT 19.7 SEC (12.0-15.0) H 09/18/17 06:10 INR 1.66 (0.83-1.16) H 09/18/17 06:10 Allergies/Adverse Reactions: Iodinated Contrast- Oral and IV Dye Allergy (Verified 09/17/17 09:48) Yudi
--- NOTE | 2017-09-18 14:32 | PDINTPN ---
Carbon Paper Interleafer Progress Note Assessment/Plan: Assessment: Status post presume stroke. CT head and CT angiograms of the head and neck were all negative. Received tPA with resolution of his symptoms. He was on anticoagulation however INR was subtherapeutic when he became aphasic. MRI now known to be negative. Neurology does not think he necessarily had a stroke but that his acute symptoms were more related to possible influenza and acute illness? Chronic atrial fibrillation, anticoagulation. INR 1.66 today after restarting Coumadin. On bridge Lovenox. Hypertension: Blood pressure is fine. On his usual outpatient medications. Hives: Presumably secondary to iodinated contrast. Family history is positive for shellfish allergies. Now resolved. Metabolic: Type 2 diabetes. On p.r.n. sliding scale insulin coverage. Influenza A. On Tamiflu. He is afebrile, has little in the way of pulmonary symptoms at this point Plan: Continue Coumadin and twice daily enoxaparin until Coumadin is again therapeutic. Continue Tamiflu for 5 days. He and his have a flight back to [facility] tomorrow. From my standpoint he could be discharged this evening after enoxaparin. He can get a dose tomorrow morning and get his INR checked in [place] tomorrow afternoon after he returns. He should wear a mask for travel. His does not need to wear a mask. 30 min of critical care time spent directly with the patient. Discussed with the patient and family, Neurology, hospitalist, nursing, the ICU multi disciplinary team. Subjective: Doing well. Close to baseline. Denies significant cough or pulmonary symptoms. Feels pretty well. Word-finding problems essentially resolved. Family thinks he is back to baseline. Objective: Vital Signs Temp Pulse Resp BP Pulse Ox 36.9 C 54 L 21 H 143/68 H 93 09/18/17 12:00 09/18/17 12:00 09/18/17 12:00 09/18/17 12:00 09/18/17 12:00 Laboratory Results 09/18/17 09:08 09/17/17 04:22 09/17/17 09/18/17 09/19/17 05:59 05:59 05:59 Intake Total 949.64 1581 500 Output Total 450 625 1 Balance 499.64 956 499 PT 19.7 SEC (12.0-15.0) H 02/11/18 06:10 INR 1.66 (0.83-1.16) H 09/18/17 06:10 MRI of brain: Negative Physical Exam - Physical Exam General Appearance: alert, no apparent distress EENT: PERRL/EOMI, other (On room air) Neck: normal inspection Respiratory: lungs clear, decreased breath sounds (At bases), No rales, No rhonchi, No wheezing Cardiac/Chest: irregularly irregular (Atrial fibrillation in 50s to 60s) Abdomen: normal bowel sounds, non-tender, soft Skin: normal color, warm/dry Extremities: No pedal edema Neuro/Psych: no motor/sensory deficits, No cognition abnormalities (Much improved. Possibly some mild were deficits?) ICD10 Worksheet Patient Problems: Problems Problem Status Onset Diarrhea Acute Weakness Acute Fever Acute
--- NOTE | 2017-09-18 15:32 | ASMTCMCOM ---
CM Note CM Note Notes: Per ICU rounds, plan is for patient to discharge this evening as he has a 9am flight home to [place] tomorrow. Anti-coagulation plan discussed with floor RN with patient and , patient to follow up as directed. CM met with patient, IM delivered and signed. No CM discharge needs identified at this time. CM plan: Patient to discharge tonight with family support. Date Signed: 09/18/2017 03:31 PM Electronically Signed By:Jennifer Castillo
[2017-09-18 16:37] VITALS: BP 136/76; PULSE 48; RESP 13; O2SAT 98
[2017-09-18] MEDS ORDERED: WARFARIN SODIUM 5 MG TAB PO ONE (16:43)
--- NOTE | 2017-09-18 17:55 | PDDCSUM ---
Discharge Summary Discharge Summary: DISCHARGE DIAGNOSES: -acute influenza infection without respiratory complications -acute neurologic syndrome suspicious for stroke, completely resolved after tPA , with a subsequent normal MRI -chronic atrial fibrillation, rate controlled without chest pain or heart failure at this time inadequate anticoagulation -diabetes mellitus type 2 with reasonable blood sugar control at this time -hypertension with reasonably good blood pressure control at this time on medicines -hyperlipidemia with LDL at this time of 98 which would be above his goal, patient taking very low dose of statin at the time of his admission here -chronic obstructive sleep apnea, patient has been not using CPap to date by his choice CONSULTANTS: Dr. Gianfranco Gross PROCEDURES: CT scan head with no evidence of bleed or other acute change CT angio of head and neck without any significant obstructive lesions MRI of brain without any acute ischemic or other acute abnormalities HOSPITAL COURSE SUMMARY: This patient is traveling here from [place] and has diabetes atrial fibrillation, presented to our emergency room with symptoms of fever and other symptoms suggestive of influenza. He tested positive for influenza a and as he was feeling quite ill was admitted to the hospital and started on Tamiflu. In the emergency room he did complain of dizziness and there was concern about whether this represented some type of acute neurologic episode, however there were no other neurologic findings in the ER. He did have a MRI of the brain to assess his dizziness and there were no acute abnormalities on that MRI scan. He was transferred from the emergency room to a room on the medical unit in stable condition. As the hospitalist admitting him came to see him as he arrived in his room he was suddenly aphasic and had a right pronator drift. There was no headache no change in vital signs, and no other neurologic symptoms. The patient was evaluated by our remote stroke assessment neurology team who agreed that this looks like an acute stroke. His INR was 1.6 on Coumadin for his AFib. There was no evidence of bleeding on CT or MRI scanning so the patient was given tPA following which his a phase he and pronator drift promptly resolved. There is no evidence of headache new neurologic symptoms or other complications of the tPA administration and the patient observed further in the intensive care unit without recurrence. Because of the tPA his Coumadin was held. He had some pssk-ja-ojhuvtke hypertension on presentation but this did resolve without any additional treatment here in the hospital. His sugars remained in good control. At no time during his stay here did he have any hypoglycemia. His metformin had been held here due to the IV contrast for the CT angiogram studies. Despite this his sugars remained in reasonable shape overall. The patient was seen by Dr. Linn of neurology. There was a repeat MRI scan done which did not show any evidence of stroke or other abnormalities acutely. The neurologic opinion was that without abnormalities on MRI this was likely not an actual stroke or ischemic event. It was proposed that perhaps this was a side effect of his influenza. Reviewing this episode 1 would have to come up with a mechanism more by influenza cause such an event and without hypoglycemia , hypotension, or other physiologic changes hard to know how this symptom would come up from influenza. He was not having significant fevers or signs of sepsis. It was a clearly localized focal neurologic episode that had abrupt onset and abrupt resolution. Either way the cause of his neurologic episode is not entirely certain but is felt that the better part of Valor is to move on with aggressive stroke prevention measures in this patient with atrial fibrillation diabetes hypercholesterolemia and hypertension. He had rate controlled atrial fibrillation without any cardiac decompensation here. Blood pressures overall were satisfactory. Sugars were a little bit higher than would be ideal but he was off of his metformin due to the IV contrast. His LDL was at 88. The patient stated that he had originally been prescribed Crestor 5 mg but due to his desire to take the lows possible doses of medication he has been taking 1/4 of a tablet or 1.25 mg daily. In addition he has been taking Coumadin any comes here with a an adequate INR 1.6, with a high dose of 5 mg 5 days a week and 2.5 mg the other 2 days. The Coumadin had been held temporarily here due to his tPA infusion. We are now starting him back on Coumadin with some bridging Lovenox doses here. As he travels back home to [place] tomorrow, he will be taking Coumadin 5 mg daily and get a repeat INR tomorrow at his [facility]stone layer's office and await further instruction from his [facility] layer. In terms of lipids it is recommended he go back to the 5 mg Crestor dose daily and recheck his lipids in 1 month, consider increasing the dose if needed to get to a goal of less than 70 LDL. He will continue his metformin and blood pressure medicines and monitor those closely. Diet and lifestyle and exercise changes were discussed with him as well. PENDING TEST RESULTS: None MEDICATION CHANGES: It is recommended that he increase his Crestor from what he says is a current dose of 1.25 mg daily to 5 mg daily and retest cholesterol in 1 month Increase Coumadin to 5 mg daily but he will be having repeat INR testing tomorrow and his flagstone layer's will direct his Coumadin dosing from then Continue his usual diabetes and blood pressure medicines for now FOLLOW-UP PLAN: INR testing at his [facility] layer's office in [place] tomorrow Ongoing close monitoring of INR by his cardiology team See his primary care physician within 1-2 weeks, repeat lipid testing at 4 weeks from this time Greater than 35 minutes bedside and care coordination time today
--- NOTE | 2017-09-20 14:56 | ECHO ---
[email or web address] [address] [address] Main: [phone] Fax: Transthoracic Echocardiogram Name: SWATHI DIETRICH MR#: [id number] Study Date: 09/16/2017 Study Time: 03:19 PM Date of : 1935 Age: 81 year(s) Height: 175.3 cm (69 in.) Weight: 90.72 kg (200 lb.) BSA: 2.07 m2 Gender: Male Examination: Echo Indication: ischemic stroke Image Quality: Adequate Contrast: Requested by: Mary Abbott BP: 165 mmHg/66 mmHg Heart Rate: Rhythm: Atrial fibrillation Indication: ischemic stroke Procedure Staff Patient Registration Manager: Courtney Alcaraz [facility] Reading Physician: Munir Vincent Requesting Provider: Conclusions: Normal size left ventricle. Moderate concentric LV hypertrophy. Normal global systolic LV function. EF is 57 %. No regional wall motion abnormality. Normal size right ventricle. The left atrium is severely dilated. The right atrium is severely dilated. Mild mitral valve regurgitation is present. The aortic valve is tri-leaflet and functions normally. Mild aortic valve regurgitation is present. The tricuspid valve is normal in appearance and function. Mild to moderate tricuspid valve regurgitation. Right ventricular systolic pressure measures 36mmHg. Trivial pulmonic valve regurgitation. Normal size aortic root measuring 3.9 cm. Normal size ascending aorta measuring 3.6 cm. Measurements: Chambers Valvular Assessment AV/MV Valvular Assessment TV/PV Normal Normal Normal Name Value Range Name Value Range Name Value Range Ao Yen (MM): 3.9 cm (2.2 cm-3.7 AV Vmax: 1.15 m/s (1 m/s-1.7 TR Vmax: 2.79 mm/s ( - ) cm) m/s) TR PGmax: 31 mmHg ( - ) IVSd (2D): 1.6 cm (0.6 cm-1.1 AV maxP mmHg ( - ) syst. PAP: 36 mmHg ( - ) cm) LVOT Vmax: 0.90 m/s (0.7 m/s-1.1 PV Vmax: 1.16 m/s (0.6 m/s-0.9 LVDd (2D): 4.5 cm (4.2 cm-5.9 m/s) m/s) cm) MV E Vmax: 0.78 m/s ( - ) PV PGmax: 5 mmHg ( - ) LVDs (2D): 3.1 cm (2.1 cm-4 cm) Patient: SWATHI DIETRICH Study Date: 09/16/2017 Page 1 of 2 03:19 PM LVPWd (2D): 1.3 cm (0.6 cm-1 cm) LVEF (BP): 57 % (>=55 %) RVDd(2D): 2.6 cm (1.9 cm-3.8 cmmm) Continued Measurements: Chambers Valvular Assessment AV/MV Valvular Assessment TV/PV Name Value Name Value Name Value LADs: 6.6 cm MV DecTime: 132 m/s CVP (est.): 5 mmHg LADs Lon.7 cm AR Vmax: 0.98 cm/s LA Area: 41.9 cm2 LA Volume: 192 ml LA Volume Index: 92.8 ml/m2 RA Area: 30.0 cm2 Additional Vessels Name Value Ao Ascendin.6 cm Findings: Left Ventricle: Normal size left ventricle. Moderate concentric LV hypertrophy. Normal global systolic LV function. EF is 57 %. No regional wall motion abnormality. Unable to assess diastolic dysfunction. Right Ventricle: Normal size right ventricle. Normal RV function. Left Atrium: The left atrium is severely dilated. Unable to perform a bubble study due to TPA running in the only IV. Right Atrium: The right atrium is severely dilated. Mitral Valve: The mitral valve is normal in appearance and function. Mild mitral valve regurgitation is present. No mitral stenosis is present. Aortic Valve: The aortic valve is tri-leaflet and functions normally. Mild aortic valve regurgitation is present. No aortic valve stenosis is present. Tricuspid Valve: The tricuspid valve is normal in appearance and function. Mild to moderate tricuspid valve regurgitation. Right ventricular systolic pressure measures 36mmHg. The pulmonary artery pressure is slightly increased. Pulmonic Valve: Pulmonary valve not well visualized. Trivial pulmonic valve regurgitation. Aorta: Normal size aortic root measuring 3.9 cm. Normal size ascending aorta measuring 3.6 cm. IVC: The IVC is normal sized. Pericardium: Small pericardial effusion. Electronically signed by Munir sue 09/20/2017 at 02:54 PM (No Signature Object) Patient: SWATHI DIETRICH Study Date: 09/16/2017 Page 2 of 2 03:19 PM [id number]
== END 2017-09-18 19:15 | disposition home or self-care (01) | DRG 63 ==
LOC: F3N 13:07 → F2N 15:03 → OBSVTOIN 15:09
PROVIDERS: ADMIT Hospitalist; ATTEND Hospitalist
DX: I63.9 Cerebral infarction, unspecified (principal); J10.1 Influenza due to other identified influenza virus with other respiratory manifestations; R47.01 Aphasia; I48.2 Chronic atrial fibrillation; E11.9 Type 2 diabetes mellitus without complications; I10 Essential (primary) hypertension; E78.5 Hyperlipidemia, unspecified; L27.0 Generalized skin eruption due to drugs and medicaments taken internally; G47.33 Obstructive sleep apnea (adult) (pediatric); T50.8X5A Adverse effect of diagnostic agents, initial encounter; Z79.01 Long term (current) use of anticoagulants; Z79.84 Long term (current) use of oral hypoglycemic drugs
CPT/HCPCS: 82947-QW; 92507-GN; 92523-GN; 97165-GO; G8987-GO-CI; G8988-GO-CI; G9165-GN-CJ; G9166-GN-CH; G9167-GN-CI; J1200; J1650; J1815; J2997; Q9967